=== PATIENT | female | born 1965 | race Caucasian/White ===

== ENCOUNTER 2023-08-17 12:28 | Emergency (ER) | payer MEDICARE ==
--- NOTE | 2023-08-17 13:22 | RAD REPORT ---
EXAM DESCRIPTION: RAD - Foot Right 3 View - 08/17/2023 1:06 pm CLINICAL HISTORY: Pain;Swelling COMPARISON: No comparisons FINDINGS/IMPRESSION: No acute fracture. No malalignment. Small plantar aspect calcaneal spur.
--- NOTE | 2023-08-17 13:39 | EDPHYS ---
Physician Documentation [facility] Name: Cassidy Sales Age: 57 yrs Sex: Female : 1965 Arrival Date: 08/17/2023 Time: 12:28 Bed 12 Private MD: Maurizio Fuchs HPI: 08/16 13:17 This 57 yrs old Female presents to ER via Ambulatory with complaints of Toe Injury. sb4 13:17 The patient presents with an injury, pain, that is acute. The complaints affect the sb4 right fifth toe. Context: The problem was sustained at home, resulted from the patient kicking, a solid object, the patient can fully bear weight, the patient is able to ambulate, with mild difficulty. Onset: The symptoms/episode began/occurred 1 week(s) ago. Modifying factors: The symptoms are alleviated by nothing, the symptoms are aggravated by weight bearing, movement, wearing shoes. The patient has not experienced similar symptoms in the past. The patient has not recently seen a physician. 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 - Infectious Disease History:: Denies. - Social history:: Smoking status: Patient denies any tobacco usage or history of. ROS: 13:17 MS/extremity: Positive for injury or acute deformity, contusion, ecchymosis, erythema, sb4 pain, swelling, tenderness, of the right fifth toe, 13:17 Constitutional: Negative for fever, chills, and weight loss, 13:17 All other systems are negative, Exam: 13:17 Constitutional: This is a well developed, well nourished patient who is awake, alert, sb4 and in no acute distress. Head/Face: Normocephalic, atraumatic. Eyes: Extra-ocular motions intact. Periorbital areas with no swelling, redness, or edema. ENT: Mucous membranes moist. Skin: Warm, dry with normal turgor. Normal color with no rashes, no lesions, and no evidence of cellulitis. Neuro: Awake and alert, GCS 15, oriented to person, place, time, and situation. Motor strength 5/5 in all extremities. Sensory grossly intact. 13:17 Musculoskeletal/extremity: mild swelling and erythema of right fifth toe. no ecchymosis or deformity noted. pain with passive and active ROM. ambulates without assistance. . Vital Signs: 12:40 BP 150 / 87; Pulse 77; Resp 18 S; Temp 97.3(TE); Pulse Ox 100% on R/A; aa5 13:50 BP 148 / 84; Pulse 72; Resp 18; Pulse Ox 100% on R/A; mb9 MDM: 12:59 Patient medically screened. sb4 13:17 Differential diagnosis: fracture, sprain, contusion. sb4 13:38 Data reviewed: vital signs, nurses notes, radiologic studies, and as a result, I will sb4 discharge patient. Counseling: I had a detailed discussion with the patient and/or guardian regarding the historical points, exam findings, and any diagnostic results supporting the discharge/admit diagnosis, radiology results, to return to the emergency department if symptoms worsen or persist or if there are any questions or concerns that arise at home. 08/16 12:56 Order name: XRAY Foot RIGHT 3 View; Complete Time: 13:28 as6 08/16 13:38 Order name: Walking boot: short; Complete Time: 13:40 sb4 Administered Medications: No medications were administered Disposition Summary: 08/17/23 13:39 Discharge Ordered Notes: Location: Home sb4 Problem: an ongoing problem sb4 Symptoms: are unchanged sb4 Condition: Stable sb4 Diagnosis - Contusion of right lesser toe(s) without damage to nail, initial encounter sb4 Followup: sb4 - With: Emergency Department - When: As needed - Reason: Trouble breathing, Worsening of condition Discharge Instructions: - Discharge Summary Sheet sb4 - Foot Contusion sb4 - Walking Boot, Adult sb4 Forms: - Thank You Letter sb4 - Patient Portal Instructions sb4 - Leadership Thank You Letter sb4 Signatures: Dispatcher [employer] Bettye Galeas RN RN aa5 Goldie Morgan, JOSE GUADALUPE PAStephon sb4
--- NOTE | 2023-08-17 13:39 | ER ---
Nurse's Notes [facility] [place] Name: Cassidy Sales Age: 57 yrs Sex: Female : 1965 Arrival Date: 08/17/2023 Time: 12:28 Bed 12 Private MD: Diagnosis: Contusion of right lesser toe(s) without damage to nail, initial encounter Presentation: 08/16 12:40 Chief complaint: Chief complaint: Patient states: "I hit a suitcase twice last aa5 ". Pt c/o pain to right toes. 12:40 Acuity: JIGAR 4 aa5 12:40 Method Of Arrival: Ambulatory aa5 12:40 Coronavirus screen: At this time, the client does not indicate any symptoms associated aa5 with coronavirus-19. Ebola Screen: Patient denies travel to an Ebola-affected area in the 21 days before illness onset. Initial Sepsis Screen: Does the patient meet any 2 criteria? No. Patient's initial sepsis screen is negative. Does the patient have a suspected source of infection? No. Patient's initial sepsis screen is negative. Risk Assessment: Do you want to hurt yourself or someone else? Patient reports no desire to harm self or others. Onset of symptoms was August 10, 2023. 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 - Infectious Disease History:: Denies. - Social history:: Smoking status: Patient denies any tobacco usage or history of. Screenin:15 [facility] ED Fall Risk Assessment (Adult) History of falling in the last 3 months, mb9 including since admission No falls in past 3 months (0 pts) Confusion or Disorientation No (0 pts) Intoxicated or Sedated No (0 pts) Impaired Gait No (0 pts) Mobility Assist Device Used No (0 pt) Altered Elimination No (0 pt) Score/Fall Risk Level 0 - 2 = Low Risk Oriented to surroundings, Maintained a safe environment, Educated pt \\T\\ family on fall prevention, incl call for assistance when getting out of bed. Abuse screen: Denies threats or abuse. Nutritional screening: No deficits noted. Tuberculosis screening: No symptoms or risk factors identified. Assessment: 13:14 General: Appears in no apparent distress. Behavior is calm, cooperative. Pain: mb9 Complains of pain in right foot Pain does not radiate. Pain currently is 8 out of 10 on a pain scale. Quality of pain is described as throbbing, Pain began suddenly. Neuro: Castillo Agitation-Sedation Scale (RASS): 0 - Alert and Calm Level of Consciousness is awake, alert, obeys commands, Oriented to person, place, time, situation, Appropriate for age. Cardiovascular: Patient's skin is warm and dry. Respiratory: Airway is patent Respiratory effort is even, unlabored, Respiratory pattern is regular, symmetrical. GI: No signs and/or symptoms were reported involving the gastrointestinal system. : No signs and/or symptoms were reported regarding the genitourinary system. EENT: No signs and/or symptoms were reported regarding the EENT system. Derm: Skin is pink, warm \\T\\ dry. Derm: Bruising that is dark purple, on right foot. Musculoskeletal: Range of motion: intact in all extremities. Vital Signs: 12:40 BP 150 / 87; Pulse 77; Resp 18 S; Temp 97.3(TE); Pulse Ox 100% on R/A; aa5 13:50 BP 148 / 84; Pulse 72; Resp 18; Pulse Ox 100% on R/A; mb9 ED Course: 12:33 Patient arrived in ED. ra3 12:40 Arm band placed on. aa5 12:42 Triage completed. aa5 12:59 Goldie Morgan PA-C is PHCP. sb4 12:59 Maurizio King MD is Attending Physician. sb4 13:08 XRAY Foot RIGHT 3 View In Process Unspecified. EDMS 13:14 Daisy Castorena, KYLE is Primary Nurse. mb9 13:15 Placed in gown. Bed in low position. Call light in reach. Side rails up X 1. Provided mb9 Education on: press call light if needing anything. Client placed on continuous cardiac and pulse oximetry monitoring. NIBP monitoring applied. 13:15 No provider procedures requiring assistance completed. mb9 13:40 Patient did not have IV access during this emergency room visit. mb9 Administered Medications: No medications were administered Medication: 13:15 VIS not applicable for this client. mb9 Outcome: 13:39 Discharge ordered by . airam 13:40 Discharged to home ambulatory, mb9 13:40 Condition: stable 13:40 Discharge instructions given to patient, Instructed on discharge instructions, follow up and referral plans. Demonstrated understanding of instructions, follow-up care, 13:50 Patient left the ED. mb9 Signatures: Dispatcher [employer] EDBettye Frazier RN RN [email or web address] Goldie Morgan, PA-C PA-C Daisy Royal RN RN mb9 Zeina Martinez ra3 Corrections: (The following items were deleted from the chart) 12:44 12:40 Chief complaint: jose garcia
[2023-08-17 19:28] VITALS: BP 148/84; TEMP 97.3; O2SAT 100
== END 2023-08-17 13:50 | disposition home or self-care (01) ==
LOC: ER 12:28
DX: S90.121A Contusion of right lesser toe(s) without damage to nail, initial encounter (principal); Z88.8 Allergy status to other drugs, medicaments and biological substances
CPT/HCPCS: 99283

== ENCOUNTER 2023-09-02 17:37 | Emergency (ER) | payer MEDICARE ==
[2023-09-02 20:28] LABS: Specific Gravity < 1.005 (1.005-1.030); Urine Bilirubin NEGATIVE (Negative); Urine Blood Negative (Negative); Urine Clarity Clear (Clear); Urine Color Colorless (Yellow); Urine Glucose NEGATIVE (Negative); Urine Ketones NEGATIVE (Negative); Urine Microscopic Reflex YN NO UMIC; Urine Nitrite NEGATIVE (Negative); Urine Protein NEGATIVE (Negative); Urine Urobilinogen Normal (Normal); Urine pH 5.5 (5.0-7.0)
[2023-09-02 20:34] LABS: PT Prothrombin Time 10.5 SECONDS (9.5-12.5); PTT, Activated Partial Thromb 31.6 SECONDS (24.3-36.9); Protime INR 0.95
[2023-09-02 20:39] LABS: Absolute Basophils 0.1 K/uL (0-0.5); Absolute Eosinophils 0.4 K/uL (0-0.5); Absolute Lymphocytes (CBC) 2.6 K/uL (0.7-4.9); Absolute Monocytes 0.9 K/uL (0.1-1.3); Absolute Neutrophil 5.9 K/uL (1.8-8.0); Basophils % 0.8 % (0-1.3); Eosinophils % 3.6 % (0-4.4); Hematocrit 38.9 % (36.0-45.0); Hemoglobin 12.7 g/dL (12.0-15.0); Lymphocytes % 26.5 % (15.3-44.8); MCH 24.8 pg (27.0-35.0); MCHC 32.7 g/dL (32.0-36.0); MPV 8.1 fL (7.6-11.3); Monocytes % 9.2 % (3.3-12.3); Neutrophils % 59.9 % (41.7-73.7); Platelets 371 thou/uL (152-406); RBC Red Blood Cell Count 5.12 M/uL (3.86-4.86); Red Cell Distribution Width 16.1 % (12.1-15.2)
[2023-09-02 20:53] LABS: Barbiturates NEGATIVE (NEGATIVE); Benzodiazepines NEGATIVE (NEGATIVE); Cocaine NEGATIVE (NEGATIVE); METHAMPHETAM NEGATIVE (NEGATIVE); Methadone NEGATIVE (NEGATIVE); Opiates NEGATIVE (NEGATIVE); Phencyclidine NEGATIVE (NEGATIVE); THC Cannibis NEGATIVE (NEGATIVE)
[2023-09-02 21:42] LABS: ALT/SGPT 36 U/L (13-56); AST/SGOT 25 U/L (15-37); Albumin 3.6 g/dL (3.4-5.0); Alkaline Phosphatase 122 U/L (45-117); Anion Gap 6.8 mEq/L (5.0-15.0); BUN Blood Urea Nitrogen 5 mg/dL (7-18); Bicarbonate 30 mEq/L (21-32); Bilirubin Direct 0.1 mg/dL (0-0.2); Bilirubin Indirect, Calculated 0.2 mg/dL (0.2-0.8); Bilirubin Total 0.3 mg/dL (0.2-1.0); Globulin 3.6 g/dL (2.3-3.5); Glomerular Filtration Rate 65 ml/min (=/>90); Glucose Level 102 mg/dL (74-106); Potassium 3.8 mEq/L (3.5-5.1); Protein, Total 7.2 g/dL (6.4-8.2); Sodium Level 137 mEq/L (136-145)
--- NOTE | 2023-09-02 22:09 | ER ---
Nurse's Notes [facility] [place] Name: Cassidy Sales Age: 57 yrs Sex: Female : 1965 Arrival Date: 09/02/2023 Time: 17:37 Bed 18 Private MD: Diagnosis: Suicidal ideations Presentation: 09/01 17:37 Chief complaint: Patient states: "I am homeless and I got kicked out of [facility] today, I just want to end it all." Hx of depression, plan is to "take a bunch of pills, I am going to dissolve them in water so I don't throw them up. I looked on [employer] and found out how much to take to do it right.". Coronavirus screen: At this time, the client does not indicate any symptoms associated with coronavirus-19. Ebola Screen: No symptoms or risks identified at this time. Initial Sepsis Screen: Does the patient meet any 2 criteria? No. Patient's initial sepsis screen is negative. Does the patient have a suspected source of infection? No. Patient's initial sepsis screen is negative. Risk Assessment: Do you want to hurt yourself or someone else? Patient reports desire/thoughts of hurting themselves or someone else. Provider notified. Onset of symptoms was September 02, 2023. 17:37 Method Of Arrival: Law Enforcement: [facility] 17:37 Acuity: JIGAR 2 hb Triage Assessment: 18:15 General: Appears in no apparent distress. Behavior is calm, cooperative. Pain: Denies hb pain. EENT: No signs and/or symptoms were reported regarding the EENT system. Neuro: Level of Consciousness is awake, alert, obeys commands, Oriented to person, place, time, situation. Cardiovascular: Patient's skin is warm and dry. Respiratory: Respiratory effort is even, unlabored, Respiratory pattern is regular, symmetrical. GI: No signs and/or symptoms were reported involving the gastrointestinal system. : No signs and/or symptoms were reported regarding the genitourinary system. Derm: Skin is pink, warm \\T\\ dry. Musculoskeletal: No signs and/or symptoms reported regarding the musculoskeletal system. 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 - Infectious Disease History:: Denies. - Social history:: Smoking status: Patient/guardian denies using tobacco. Screenin:16 [facility] ED Fall Risk Assessment (Adult) History of falling in the last 3 months, hb including since admission No falls in past 3 months (0 pts) Confusion or Disorientation No (0 pts) Intoxicated or Sedated No (0 pts) Impaired Gait No (0 pts) Mobility Assist Device Used No (0 pt) Altered Elimination No (0 pt) Score/Fall Risk Level 0 - 2 = Low Risk Oriented to surroundings, Maintained a safe environment, Educated pt \\T\\ family on fall prevention, incl call for assistance when getting out of bed. Abuse screen: Denies threats or abuse. Denies injuries from another. Nutritional screening: No deficits noted. Tuberculosis screening: No symptoms or risk factors identified. Assessment: 18:16 General: See triage assessment. hb 19:00 General: Appears in no apparent distress. comfortable, Behavior is calm, cooperative. lg3 Pain: Denies pain. Neuro: No deficits noted. Castillo Agitation-Sedation Scale (RASS): 0 - Alert and Calm Level of Consciousness is awake, alert, obeys commands, Oriented to person, place, time, situation. Cardiovascular: No deficits noted. Denies chest pain, shortness of breath, Capillary refill < 3 seconds Clubbing of nail beds is absent JVD is absent Patient's skin is warm and dry. Respiratory: No deficits noted. Airway is patent Respiratory effort is even, unlabored, Respiratory pattern is regular, symmetrical. GI: No deficits noted. No signs and/or symptoms were reported involving the gastrointestinal system. Abdomen is round non-distended, obese. : No deficits noted. No signs and/or symptoms were reported regarding the genitourinary system. EENT: No deficits noted. No signs and/or symptoms were reported regarding the EENT system. Derm: No deficits noted. No signs and/or symptoms reported regarding the dermatologic system. Skin is intact, is healthy with good turgor, Skin is dry, Skin is normal, Skin temperature is warm. Musculoskeletal: No deficits noted. No signs and/or symptoms reported regarding the musculoskeletal system. Circulation, motion, and sensation intact. Range of motion: intact in all extremities. 23:29 General: report given to felipa myers.. vc1 23:51 Reassessment: Patient appears in no apparent distress at this time. No changes from lg3 previously documented assessment. Patient and/or family updated on plan of care and expected duration. Pain level reassessed. Patient is alert, oriented x 3, equal unlabored respirations, skin warm/dry/pink. 09/02 01:29 General: Appears in no apparent distress. comfortable, quietly resting with eyes closed.lg3 03:30 Reassessment: Patient appears in no apparent distress at this time. Patient and/or lg3 family updated on plan of care and expected duration. Pain level reassessed. Patient is alert, oriented x 3, equal unlabored respirations, skin warm/dry/pink. Patient denies pain at this time. Psych: 09/01 19:05 [place] Suicide Severity Screening: In the past month, have you wished you were lg3 or wished you could go to sleep and not wake up? Patient responds "yes." "In the past month, have you actually had any thoughts of killing yourself?" Patient responds "yes." "In your lifetime, have you ever done anything, started to do anything, or prepared to do anything to end your life?" Patient responds "yes." Patient reports suicidal intent within 3 past months. Subjective: Patient's mood is hopeless, Delusions are denied, Hallucinations are denied Having thoughts of suicide. Plan for suicide is dissolving prescribed medications and ingesting. Objective: Patient is irritable, restless, Speech is normal, Affect is appropriate. Interventions: Removed personal items and placed in bag. Patient placed in hospital gown. Searched person for dangerous items. Urine collected and sent for urine drug test. Belonging list filled out. Safety Checks: Personal items have been removed. Pt has been placed in a hallway bed/chair. No visitors are present at this time. Pt denies substance abuse. Commitment: Patient will be a voluntary commitment. Vital Signs: 17:37 BP 134 / 84; Pulse 88; Resp 16; Temp 98.1; Pulse Ox 100% on R/A; Pain 0/10; hb 20:33 BP 141 / 77; Pulse 63; Resp 18; Temp 98.2; Pulse Ox 96% on R/A; bf2 09/02 02:52 Weight 136.08 kg; rv1 03:30 BP 137 / 72; Pulse 68; Resp 17 S; Temp 97.8(O); Pulse Ox 98% on R/A; Pain 0/10; lg3 09/01 17:37 Pain Scale: Adult hb 03:30 Pain Scale: Adult lg3 ED Course: 09/01 17:56 Patient arrived in ED. em1 17:58 Maurizio Torres PA is PHCP. cp 17:58 Hayden Calix MD is Attending Physician. cp 18:15 Triage completed. hb 18:16 Patient has correct armband on for positive identification. Provided Education on: hb tests, result times, mental health evaluation process. 19:00 Safety Checks: Personal items have been removed. The door is open or patient has been lg3 placed in a hallway bed/chair. There are no family/friend visitors at this time Sitter present at this time. 19:00 Warm blanket given. Pillow given. Patient is placed in psych hold. lg3 19:00 Arm band placed on right wrist. lg3 19:52 Amy Chery RN is Primary Nurse. lg3 19:58 Michael Molina DO is Attending Physician. cp 20:36 Basic Metabolic Panel Sent. bf2 20:36 CBC with Diff Sent. bf2 20:54 ETOH Level Sent. bf2 20:54 Hepatic Function Sent. bf2 20:54 Salicylate Sent. bf2 22:12 Faxed pt clinicals to the following facilities for placement; [address] 09/02 03:30 No provider procedures requiring assistance completed. Patient did not have IV access lg3 during this emergency room visit. Administered Medications: No medications were administered Medication: 09/01 18:16 VIS not applicable for this client. hb Outcome: 22:08 ER care complete, transfer ordered by . cp 09/02 03:30 Transferred by ground EMS to other acute care facility: [facility] in [address] Transfer form completed. Condition: stable Instructed on the need for transfer, Demonstrated understanding of instructions, 03:35 Patient left the ED. lg3 Signatures: Bill Snider em1 Maurizio Torres PA PA cp Baxter, Heather, RN RN hb Amy Chery KYLE RN lg3 Nina, Ne, RN RN vc1 Kelly Hood rv1 Nolberto Collins2 Corrections: (The following items were deleted from the chart) 04:32 03:30 Transferred by ground EMS Transfer form completed. lg3 vc1
--- NOTE | 2023-09-02 22:09 | EDPHYS ---
Physician Documentation [facility] Name: Cassidy Sales Age: 57 yrs Sex: Female : 1965 Arrival Date: 09/02/2023 Time: 17:37 Bed 18 Private MD: ED Physician Michael Molina HPI: 09/01 18:13 This 57 yrs old Female presents to ER via Unassigned with complaints of Suicidal cp Ideation. 18:13 The patient presents to the emergency department with suicide ideation, and the patient cp has a plan, to overdose with medications. 18:13 Associated signs and symptoms: Pertinent positives; suicide ideation, Pertinent cp negatives: abdominal pain, chest pain. 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 - Infectious Disease History:: Denies. - Social history:: Smoking status: Patient/guardian denies using tobacco. ROS: 18:20 Constitutional: Negative for body aches, chills, fever, poor PO intake, cp 18:20 Eyes: Negative for injury, pain, redness, and discharge, cp 18:20 ENT: Negative for drainage from ear(s), ear pain, sore throat, difficulty swallowing, difficulty handling secretions, 18:20 Cardiovascular: Negative for chest pain, edema, palpitations, 18:20 Respiratory: Negative for cough, shortness of breath, wheezing, 18:20 Abdomen/GI: Negative for abdominal pain, nausea, vomiting, and diarrhea, 18:20 Neuro: Negative for altered mental status, headache, weakness, 18:20 Psych: Positive for suicidal ideation, 18:20 All other systems are negative, Exam: 18:25 Constitutional: The patient appears in no acute distress, alert, awake, cp non-diaphoretic, non-toxic, well developed, well nourished, obese, 18:25 Head/Face: Normocephalic, atraumatic. cp 18:25 Eyes: Periorbital structures: appear normal, Conjunctiva: normal, no exudate, no injection, Sclera: no appreciated abnormality, Lids and lashes: appear normal, bilaterally, 18:25 ENT: External ear(s): are unremarkable, Nose: is normal, Mouth: Lips: moist, Oral mucosa: pink and intact, moist, Posterior pharynx: Airway: no evidence of obstruction, patent, 18:25 Chest/axilla: Inspection: normal, 18:25 Cardiovascular: Rate: normal, Rhythm: regular, 18:25 Respiratory: the patient does not display signs of respiratory distress, Respirations: normal, no use of accessory muscles, no retractions, labored breathing, is not present, Breath sounds: are clear throughout, no decreased breath sounds, no stridor, no wheezing, 18:25 Abdomen/GI: Inspection: abdomen appears normal, 18:25 Back: pain, is absent, ROM is normal, 18:25 Neuro: Orientation: to person, place \T\ time. Mentation: is normal, Motor: moves all fours, strength is normal, Sensation: is normal, Gait: is steady, at a normal pace, without difficulty, 19:57 ECG was reviewed by the Attending Physician. cp Vital Signs: 17:37 BP 134 / 84; Pulse 88; Resp 16; Temp 98.1; Pulse Ox 100% on R/A; Pain 0/10; hb 20:33 BP 141 / 77; Pulse 63; Resp 18; Temp 98.2; Pulse Ox 96% on R/A; bf2 / 02:52 Weight 136.08 kg; rv1 03:30 BP 137 / 72; Pulse 68; Resp 17 S; Temp 97.8(O); Pulse Ox 98% on R/A; Pain 0/10; lg3 05/ 17:37 Pain Scale: Adult hb 03:30 Pain Scale: Adult lg3 MDM: 05/ 17:59 Patient medically screened. cp 22:05 Data reviewed: vital signs, nurses notes, lab test result(s), and as a result, I will cp transfer patient. 22:05 Differential diagnosis: drug withdrawal. acute psychotic break, depression, psychosis cp secondary to non-compliance. Independent interpretation of the following test(s) in the Emergency Department EKG: See my EKG interpretation above. Counseling: I had a detailed discussion with the patient and/or guardian regarding the historical points, exam findings, and any diagnostic results supporting the discharge/admit diagnosis, lab results, the need to transfer to another facility, inpatient psych teatment. 09/01 18:14 Order name: Acetaminophen; Complete Time: 22:03 cp 09/01 18:14 Order name: Basic Metabolic Panel; Complete Time: 22:03 cp 09/01 18:14 Order name: CBC with Diff; Complete Time: 21:15 cp 09/01 21:15 Interpretation: Normal except: RBC 5.12; MCV 76.0; MCH 24.8; RDW 16.1. cp 09/01 18:14 Order name: ETOH Level; Complete Time: 21:15 cp 09/01 18:14 Order name: Hepatic Function; Complete Time: 22:03 cp 09/01 18:14 Order name: PT-INR; Complete Time: 21:15 cp 09/01 18:14 Order name: Ptt, Activated; Complete Time: 21:15 cp 09/01 18:14 Order name: Salicylate; Complete Time: 22:03 cp 09/01 18:14 Order name: Urinalysis w/ reflexes; Complete Time: 21:15 cp 09/01 18:14 Order name: Urine Drug Screen; Complete Time: 21:15 cp 09/01 18:14 Order name: EKG - Nurse/Tech; Complete Time: 20:26 cp 09/01 18:14 Order name: Labs collected and sent; Complete Time: 20:26 cp 09/01 18:14 Order name: Suicide Precautions; Complete Time: 20:26 cp 09/01 18:14 Order name: Suicide Screening ([place]); Complete Time: 20:33 cp EC:57 Rate is 65 beats/min. Rhythm is regular. ND interval is normal. QRS interval is cp prolonged at 102 msec. QT interval is normal. T waves are Inverted in lead aVR. Interpreted by me. Reviewed by me. Administered Medications: No medications were administered Disposition: 09/02 00:10 I was immediately available on-site in the Emergency Department for consultation in the ms3 care of the patient. Disposition Summary: 09/02/23 22:08 Transfer Ordered Notes: Transfer Location: Psych Facility cp Reason: Higher level of care cp Condition: Stable cp Problem: new cp Symptoms: are unchanged cp Accepting Physician: doctor(09/03/23 03:35) lg3 Diagnosis - Suicidal ideations cp Forms: - Medication Reconciliation Form cp - SBAR form cp Signatures: Dispatcher [employer] EDMS Maurizio Torres PA PA cp Sandra Calabrese, RN RN Amy Chery RN RN lg3 Michael Molina DO DO ms3 Corrections: (The following items were deleted from the chart) 09/01 18:15 18:15 ACETAMINOPHEN+C.LAB.BRZ ordered. EDMS EDMS 18:15 18:15 BASIC METABOLIC PANEL+C.LAB.BRZ ordered. EDMS EDMS 18:15 18:15 CBC+H.LAB.BRZ ordered. EDMS EDMS 18:15 18:15 ETHANOL+C.LAB.BRZ ordered. EDMS EDMS 18:15 18:15 HEPATIC FUNCTION+C.LAB.BRZ ordered. EDMS EDMS 18:15 18:15 PROTIME (+INR)+COAG.LAB.BRZ ordered. EDMS EDMS 18:15 18:15 PTT, ACTIVATED+COAG.LAB.BRZ ordered. EDMS EDMS 18:15 18:15 SALICYLATE+C.LAB.BRZ ordered. EDMS EDMS 18:15 18:15 Urinalysis+U.LAB.BRZ ordered. EDMS EDMS 18:15 18:15 URINE DRUG SCREEN+UC.LAB.BRZ ordered. EDMS EDMS 09/02 01:59 09/01 18:14 IV Saline Lock ordered. cp lg3 09/02 03:35 09/01 22:08 doctor giuliano lg3
[2023-09-03 03:47] VITALS: BP 137/72; TEMP 97.8; O2SAT 98
--- NOTE | 2023-09-04 14:42 | EKG ---
Test Date: 2023-09-02 Test Time: 19:51:55 Glass Sagger: BF MEASUREMENT RESULTS: Intervals: Rate: 65 RI: 170 QRSD: 102 QT: 414 QTc: 430 [place]: P: 57 RI: 170 QRS: 5 T: 22 INTERPRETIVE STATEMENTS: Normal sinus rhythm Low voltage QRS Borderline ECG No previous ECG available for comparison Electronically Signed On 09-04-23 14:38:28 CDT by Eric Olivares
== END 2023-09-03 03:35 ==
LOC: ER 17:37
DX: R45.851 Suicidal ideations (principal); Z59.00 Homelessness unspecified; Z85.841 Personal history of malignant neoplasm of brain; Z88.8 Allergy status to other drugs, medicaments and biological substances
CPT/HCPCS: 36415; 80048; 80076; 80143; 80179; 80307; 81003; 82077; 85025; 85610; 85730; 93005